=== PATIENT | female | born 1985 | race Caucasian/White ===

== ENCOUNTER 2018-03-01 05:50 | Observation (INO) | payer OTHER ==
--- NOTE | 2018-02-25 09:31 | PDGENHP ---
History and Physical History and Physical: Assessment and Plan: 1. Endometriosis of pelvic peritoneum Ines's chronic GI issues as well as her dysmenorrhea dyspareunia and dyschezia are highly suggestive of pelvic endometriosis. We reviewed all conservative and surgical options. At the end of our discussion she is interested in robotic excision of endometriosis. Given her completed childbearing and heavy menses I likely will perform a hysterectomy. She has given me permission at this time to remove her ovaries if I deem it would be beneficial to symptom improvement. I may consider repeating her pelvic ultrasound at her preoperative visit to reevaluate the complex right ovarian cyst. 2. Dysmenorrhea 3. Dyspareunia, female 4. Complex right ovarian cyst Subjective: Patient ID: Ines Mcdermott is a 32 y.o. female who presents to [facility] for endometriosis. HPI Ines Mcdermott presents for a preoperative visit. She is scheduled for a robotic assisted hysterectomy and excision of endometriosis. The risks, benefits, and alternatives were presented and informed consent was obtained. 40 minutes of this 40 minute appointment was spent counceling, reviewing the procedure in detail, and discussing the preoperative and postoperative instructions. Below is a copy of our prior visit note. Ines is a 32-year-old para 2 woman using vasectomy for contraception. She presents with a long history of gastrointestinal issues. Apparently in 2004 she was found to have a parasite after living in [place]. After treatment she continued to have problems with gas and bloating. This typically starts after lunch and gets worse throughout the evening. She eventually underwent a laparoscopy and was found to have some endometriosis on the uterus. This did not provide any significant relief. Her symptoms over time have progressively worsened. She has debilitating gas and bloating. She often can be doubled over in pain in the evenings. She has diarrhea most days of the month. All of her symptoms worsen around the time of her menses. Her best days are immediately after her flow ends. Her cycles are regular every month with 5 days of bleeding. Two of the days are very heavy when she will have to change a super plus tampon every 2 hours. With her menses she feels generalized abdominal discomfort. She has deep dyspareunia and deep dyschezia. She recently had her ParaGard IUD removed thinking this may be contributing to some of her symptoms. This has not helped. She lives in [place]. She goes to [facility] for gynecologic care. She works as a hairdresser. PastMedicalHistory Past Medical History: Diagnosis Date Depression Endometriosis Gastrointestinal disorder History of intestinal parasite PastSurgicalHistory Past Surgical History: Procedure Laterality Date CHOLECYSTECTOMY 2006 Lap COLONOSCOPY PELVIC LAPAROSCOPY 2007 UPPER GASTROINTESTINAL ENDOSCOPY WISDOM TOOTH EXTRACTION 2017 CURRENT MEDICATIONS: Current Outpatient Medications Medication Sig citalopram (CELEXA) 20 mg tablet Take 20 mg by mouth. enzymes,digestive (DIGESTIVE ENZYMES PO) Take by mouth daily. Lactobacillus acidophilus (PROBIOTIC PO) Take by mouth daily. MAGNESIUM PO Take by mouth daily. multivitamin (HEXAVITAMIN) per tablet Take 1 tablet by mouth daily. pepsin/rosana/oxbile/pancreat/bet (ILTHDW-HAS-SF ZSCE-WYX-OJW-PAP PO) Take by mouth daily. No current facility-administered medications for this visit. ALLERGIES: Morphine I have reviewed, verified and agree with the past medical, surgical, , family, social and ROS history as documented by the RN today. Objective: Vital Signs: Visit Vitals BP 92/58 Pulse 59 Temp 37 C (98.6 F) (Tympanic) Ht 1.74 m (5' 8.5") Wt 52.7 kg (116 lb 3.2 oz) LMP 02/09/2018 (Approximate) SpO2 98% BMI 17.41 kg/m Physical Exam Gen: This is an alert, well developed woman in no distress. Neuro: She moves all extremities. Psych: She is appropriate, oriented, with normal affect. Neck: No thyroid enlargement, adenopathy, or tenderness. Lungs: Clear to ascultation, no wheezes or rales. Heart: Regular rate and rhythm without obvious murmurs. Abdomen: Soft, non-tender, without guarding, rebound, or masses. Extremities: No edema or cyanosis. Pelvic: Normal external genitalia. Non-gaping introitus, vagina without discharge, adequately estrogenized, no significant prolapse. Cervix without lesions or discharge. Uterus normal sized, mobile, non-tender. Adnexa non- tender without enlargement. She has mild to moderate posterior vaginal wall prolapse. She is tender surrounding the cervix especially in the posterior cul- de-sac. No nodularity is palpable. DATA: I have reviewed the pertinent medical records. PELVIC ULTRASOUND Indication: Pelvic pain. Findings: The uterus is anterior and measures 9.7 x 5.5 x 6.1 cm. The left ovary measures 3.2 x 2.0 cm. The right ovary measures 3.5 x 2.5 cm and contains a complex cystic structure with internal reticulations measuring 2.2 x 3.2 x 2.0 cm. Right adnexa has a suggestive of adhesive disease. Impression: 3.2 cm complex right ovarian cyst which may be a hemorrhagic cyst versus an endometrioma. The right adnexa and posterior cul-de-sac are exquisitely tender. TIME/COMMUNICATION: I personally spent a total of 60 minutes. Of that 40 minutes was counseling/ coordination of patient's care. See my note above for details. Joseluis Zavaleta MD Board Certified Female Pelvic Medicine and Reconstructive Surgery Director of Minimally Invasive Gynecologic Surgery, [facility] Surgeon in Minimally Invasive Gynecologic Surgery [facility] Surgeon in Robotic Surgery
[2018-03-01] MEDS ORDERED: ACETAMINOPHEN 500 MG TAB PO ONE (06:03)
[2018-03-01] MEDS ORDERED: PHENAZOPYRIDINE HCL 200 MG TAB PO ONE (06:03)
[2018-03-01] MEDS ORDERED: GABAPENTIN 300 MG CAP PO ONE (06:03)
[2018-03-01] MEDS ORDERED: ceFAZolin 2 GM/DEXTROSE 100 ML IV ONE (06:03)
[2018-03-01] MEDS ORDERED: LR 1,000 ML IV ONE (06:04)
[2018-03-01] MEDS ORDERED: LIDOCAINE 1% 2 ML INJ ID PRN (06:04)
[2018-03-01] MEDS ORDERED: BUPIVACAINE/EPI 0.5% 30 ML SDV ONE (07:27)
[2018-03-01] MEDS ORDERED: MIDAZOLAM 2 MG/2 ML VIAL ONE (07:52)
[2018-03-01] MEDS ORDERED: MIDAZOLAM 2 MG/2 ML VIAL IVP ONE (07:54)
--- NOTE | 2018-03-01 07:54 | PDANEPAE ---
ANE Past Medical History - Cardiovascular History Hx Hypertension: No Hx Arrhythmias: No Hx Chest Pain: No Hx Coronary Artery / Peripheral Vascular Disease: No Hx CHF / Valvular Disease: No Hx Palpitations: No - Pulmonary History Hx COPD: No Hx Asthma/Reactive Airway Disease: No Hx Recent Upper Respiratory Infection: No Hx Oxygen in Use at Home: No Hx Sleep Apnea: No Sleep Apnea Screening Result - Last Documented: Negative - Neurologic History Hx Cerebrovascular Accident: No Hx Seizures: No Hx Dementia: No - Endocrine History Hx Diabetes: No - Renal History Hx Renal Disorders: No - Liver History Hx Hepatic Disorders: No Hepatic History Comment: DAMIAN - Neurological & Psychiatric Hx Hx Neurological and Psychiatric Disorders: No Neurological / Psychiatric History Comment: ANXIETY, ABD PAIN - Cancer History Hx Cancer: Yes - Congenital Disorder History Hx Congenital Disorders: No - GI History Hx Gastrointestinal Disorders: Yes Gastrointestinal History Comment: DIARRHEA, BLOATING, ABD PAIN - Other Health History Other Health History: NEG - Chronic Pain History Chronic Pain: Yes (ABD PAIN) - Surgical History Prior Surgeries: CHOLECYSTECTOMY. LAPAROSCOPY ANE Review of Systems Review of Systems: - Exercise capacity METS (RN): 6 METS ANE Patient History - Allergies Allergies/Adverse Reactions: morphine Allergy (Verified 02/01/18 15:40) HYPERVENTILATION - Home Medications Home Medications: Celexa 02/01/18 [Last Taken 02/28/18 21:30] - NPO status NPO Since - Liquids (Date): 03/01/18 NPO Since - Liquids (Time): 04:30 NPO Since - Solids (Date): 02/28/18 NPO Since - Solids (Time): 19:00 - Smoking Hx Smoking Status: Never smoked - Family Anes Hx Family Hx Anesthesia Complications: NEG ANE Labs/Vital Signs - Vital Signs Blood Pressure: 101/70 Heart Rate: 63 Respiratory Rate: 20 O2 Sat (%): 100 Height: 170.18 cm Weight: 55.338 kg ANE Physical Exam - Airway Neck exam: FROM Mallampati Score: Class 1 Mouth exam: normal dental/mouth exam - Pulmonary Pulmonary: no respiratory distress - Cardiovascular Cardiovascular: regular rate and rhythym - ASA Status ASA Status: I ANE Anesthesia Plan Anesthesia Plan: general endotracheal anesthesia Total IV Anesthesia: Yes
[2018-03-01] MEDS ORDERED: HYDROmorphONE/DILAUDID 2 MG/ML INJ ONE (07:58)
[2018-03-01] MEDS ORDERED: PROPOFOL/EMULSION 500 MG/50 ML BOTTLE IV ONE ×2 (07:58→08:53)
[2018-03-01] MEDS ORDERED: ONDANSETRON 4 MG/2 ML VIAL ONE (07:59)
[2018-03-01] MEDS ORDERED: RANITIDINE 50 MG/2 ML VIAL ONE (07:59)
[2018-03-01] MEDS ORDERED: LIDOCAINE 2% 100 MG/5 ML SYR ONE (07:59)
[2018-03-01] MEDS ORDERED: ROCURONIUM 100 MG/10 ML VIAL ONE (07:59)
[2018-03-01] MEDS ORDERED: DEXAMETHASONE 4 MG/ML VIAL ONE ×2 (07:59)
[2018-03-01] MEDS ORDERED: METOCLOPRAMIDE 10 MG/2 ML VIAL ONE (07:59)
[2018-03-01] MEDS ORDERED: KETOROLAC 30 MG/1 ML SDV ONE (07:59)
--- NOTE | 2018-03-01 08:23 | PDHPUP ---
History & Physical Update H&P update statement: This history and physical update is based on an assessment of the patient which was completed after admission or registration (within 24 hours), but prior to the surgery/procedure. H&P update: H&P reviewed & patient examined, no change in patient's condition since H&P completed
[2018-03-01] MEDS ORDERED: ACETAMINOPHEN 500 MG TAB PO PRN (09:36)
[2018-03-01] MEDS ORDERED: oxyCODONE IR 5 MG TAB PO PRN (09:36)
[2018-03-01] MEDS ORDERED: NALOXONE HCL 0.4 MG/ML INJ IVP PRN (09:36)
[2018-03-01] MEDS ORDERED: MEPERIDINE 25 MG/0.5 ML AMP IVP PRN (09:36)
[2018-03-01] MEDS ORDERED: fentaNYL 100 MCG/2 ML INJ IVP PRN (09:36)
[2018-03-01] MEDS ORDERED: ALBUTEROL 3 ML DEYVIAL IH PRN (09:36)
[2018-03-01] MEDS ORDERED: PROMETHAZINE HCL 25 MG/ML INJ IVP PRN ×2 (09:36→10:42)
[2018-03-01] MEDS ORDERED: HYDROCODONE/APAP 5/325 TAB PO PRN (09:36)
[2018-03-01] MEDS ORDERED: DIAZEPAM 5 MG/ML 1 ML SYR IVP PRN (09:36)
[2018-03-01] MEDS ORDERED: ONDANSETRON 4 MG/2 ML VIAL IVP PRN ×2 (09:36→10:42)
[2018-03-01] MEDS ORDERED: HYDROmorphONE/DILAUDID 2 MG/ML INJ IVP PRN (09:36)
[2018-03-01] MEDS ORDERED: SUGAMMADEX SODIUM 200 MG/2 ML VIAL IVP ONE (09:58)
--- NOTE | 2018-03-01 10:39 | POSTANESTH ---
Post Anesthetic Evaluation Cardiovascular Status: Similar to Pre-Op Cond Respiratory Status: Similar to Pre-op Cond. Level of Consciousness/Mental Status: Mildly Sleepy, Arousable Pain Control: Adequate, Prn Tx Ordered Nausea/Vomiting Control: Adequate, Prn Tx Ordered Complications Possibly Related to Anesthesia: None Noted
--- NOTE | 2018-03-01 10:41 | POSTOPPROG ---
Post Op Note Date of Operation: 03/01/18 Surgeon: Joseluis Zavaleta Environmental Specialist: Ann Clark Anesthesiologist: Renny Patterson Anesthesia: GET(General Endotracheal) Pre-op Diagnosis: Dysmenorrhea, endo, menorrhagia, rectocele Post-op Diagnosis: same Procedure: Robotic hyst, endo, bilat ureterolysis and ovarian pexy, rectocele, cysto Findings: Endo, ureters function at end of case Inf/Abcess present in the surg proc area at time of surgery?: No EBL: Minimal Complications: None
[2018-03-01] MEDS ORDERED: ONDANSETRON DISINTEGRATING 4 MG TAB PO PRN (10:42)
--- NOTE | 2018-03-01 11:41 | GOP ---
DATE OF OPERATION: 03/01/2018 SURGEON: Joseluis Zavaleta MD MACHINE SWEEPER BRUSH MAKER: Ann Clark CFA. ANESTHESIA: General. PREOPERATIVE DIAGNOSIS: 1. Menorrhagia. 2. Dysmenorrhea. 3. Endometriosis. 4. Symptomatic rectocele. 5. Second-degree uterine prolapse. 6. Cyclic pelvic pain. POSTOPERATIVE DIAGNOSIS: 1. Menorrhagia. 2. Dysmenorrhea. 3. Endometriosis. 4. Symptomatic rectocele. 5. Second-degree uterine prolapse. 6. Cyclic pelvic pain. PROCEDURE PERFORMED: 1. Robotic-assisted total laparoscopic hysterectomy, bilateral salpingectomy. 2. Excision of endometriosis in the anterior and posterior cul-de-sac, bilateral ovarian fossa. 3. Bilateral ureterolysis. 4. Uterosacral ligament colpopexy. 5. Bilateral ovarian pexy. 6. Rectocele repair. 7. Cystoscopy. FINDINGS: SPECIMENS: Uterus, bilateral tubes, and pelvic peritoneum with endometriosis. ESTIMATED BLOOD LOSS: Scant. DESCRIPTION OF PROCEDURE: The patient was taken to the operating room where she was identified. Gen eral anesthesia was administered and found to be adequate. She was placed in the lithotomy position and prepared and draped in normal sterile fashion. A [employer] uterine manipulator was placed into the e ndometrial cavity and sutured to the cervix. A Saab catheter was then placed. A 1 cm infraumbilical incision was made with a scalpel. The Veress needle with CO2 gas flowing was a dvanced into the peritoneal cavity. The abdomen was insufflated with carbon dioxide gas. The 12 mm trocar followed by the laparoscope were then inserted. The upper abdomen was unremarkable. There wa s no endometriosis on either diaphragm, stomach liver or bowel. Two lateral ports were placed, 1 on the right and 1 on the left under direct visualization. She then was placed in Trendelenburg positio n and the da Elizabeth robot docked on the left side. The instruments were then brought into the abdomin al cavity under direct visualization. She had a lesion in the left anterior cul-de-sac. She had mul tiple areas of endometriosis throughout the posterior cul-de-sac and bilateral ovarian fossa. The po sterior cul-de-sac peritoneum from the distal rectum up to the cervix and laterally to the uterosacra l ligaments was then completely excised. The fallopian tubes were then along the mesosalpi nx and excised. The anterior cul-de-sac lesion was excised. A bilateral ovariopexy was performed by attaching each ovary to the ipsilateral round ligaments with 3-0 Vicryl Rapide suture. A bilateral ureterolysis was then required given the endometriosis overlying both ureters. The peritoneum at the pelvic brims were incised. The ureters were gently dissected free and lateralized from the pelvic br im all the way down to the bladder. Once this was accomplished, the entire ovarian fossa peritoneum with overlying endometriosis was completely excised. The utero-ovarian ligament followed by the roun d ligament were then cauterized and transected. The anterior lip of the broad ligament was then inci sed over the left uterine vessels and across the cervix. The bladder was gently dissected off the ce rvix and upper vagina. The left uterine vasculature was then cauterized and transected. The exact s benito procedure was performed on the patient's right side. A circumferential colpotomy incision was th en made with the hot katrin and all specimens were removed through the vagina. The vaginal cuff was closed with a running suture of 0 V-Loc 180. A bilateral uterosacral ligament colpopexy was performe d by attaching the lateral aspects of the vaginal cuff to the ipsilateral uterosacral ligaments near the coccygeal-sacrospinous ligament complexes. The pelvis was then irrigated with sterile saline, an d hemostasis was present. The robot was then undocked. The fascia was closed with 0 Vicryl, skin wi th 4-0 Monocryl. A transverse incision was then made along the perineal body. Posterior vaginal epithelium was underm ined with the Metzenbaum scissors and incised sagittally. The epithelium was then gently dissected o ff the underlying rectovaginal connective tissue. The connective tissue was plicated in midline with 0 Vicryl suture. The bulbous spongiosis and transverse perineal muscles were then plicated with 0 V icryl. The excess epithelium was then trimmed and closed with a running 3-0 Vicryl suture. Cystoscopy was then performed. Both ureters had vigorous jets of urine. There was no evidence of bl adder nor urethral injury seen. No sutures were seen within the bladder. No obvious pathology was s een. Anesthesia was reversed and the patient taken to PACU awake, in stable condition. COMPLICATIONS: None. DISPOSITION: Patient stable to PACU. /[id number]/MODL
[2018-03-01] MEDS: HYDROmorphONE/DILAUDID 1 MG/ML INJ IVP PRN ×4 (12:23→22:53)
[2018-03-01] MEDS: KETOROLAC 30 MG/1 ML SDV IVP SCH ×3 (12:24→23:59)
[2018-03-01] MEDS: LR 1,000 ML IV SCH ×2 (12:48→22:27)
[2018-03-01] MEDS ORDERED: diphenhydrAMINE 25 MG CAP PO PRN (13:42)
[2018-03-01] MEDS: SIMETHICONE 80 MG TAB CHEW PO SCH ×3 (13:56→21:15)
[2018-03-01] MEDS: GABAPENTIN 300 MG CAP PO SCH ×2 (15:36→21:16)
[2018-03-01] MEDS: HYDROCODONE/APAP 5/325 TAB PO PRN ×2 (20:01→21:16)
[2018-03-01] MEDS: DOCUSATE SODIUM 100 MG CAP PO SCH (21:46)
[2018-03-01] MEDS ORDERED: MAGNESIUM PO SCH (22:00)
[2018-03-02] MEDS: KETOROLAC 30 MG/1 ML SDV IVP SCH (05:16)
[2018-03-02 05:35] LABS: PLATELET COUNT 157 10^3/uL (150-400)
[2018-03-02] MEDS ORDERED: LR 500 ML IV ONE (06:00)
[2018-03-02 08:36] VITALS: BP 87/57
[2018-03-02] MEDS: OXYCODONE/APAP 5/325 TAB PO PRN ×2 (09:25→13:23)
--- NOTE | 2018-03-02 11:52 | GDS ---
DISCHARGE DIAGNOSES: 1. Dysmenorrhea. 2. Menorrhagia. 3. Endometriosis. 4. Symptomatic rectocele. 5. Second-degree uterine prolapse. PROCEDURES: 1. Robotic-assisted total laparoscopic hysterectomy, bilateral salpingectomy. 2. Excision of endometriosis. 3. Bilateral ureterolysis. 4. Uterosacral ligament colpopexy. 5. Bilateral ovariopexy. 6. Rectocele repair. 7. Cystoscopy. HOSPITAL COURSE: The patient is a 32-year-old female with symptomatic endometriosis and rectocele. She was taken to the operating room on 03/04/2014, where she underwent the above-mentioned procedures without complications. Her postoperative course was relatively uneventful. The morning after surgery, she was ambulating, v oiding, and tolerating a general diet. She was discharged home on postoperative day #1 in good condi tion. Medications, included Percocet and ibuprofen for pain. She is to follow up in the office 2 we eks after discharge. /[id number]/MODL
[2018-03-02] MEDS: GABAPENTIN 300 MG CAP PO SCH (12:35)
[2018-03-02] MEDS ORDERED: IBUPROFEN 600 MG TAB PO SCH (13:15)
[2018-03-02] MEDS: DOCUSATE SODIUM 100 MG CAP PO SCH (13:37)
[2018-03-02] MEDS: SIMETHICONE 80 MG TAB CHEW PO SCH ×2 (13:37→14:06)
== END 2018-03-02 14:06 | disposition home or self-care (01) ==
LOC: F3E 05:50 → FOB 11:33
PROVIDERS: ADMIT Obstetrics & Gynecology; ATTEND Obstetrics & Gynecology
DX: N92.0 Excessive and frequent menstruation with regular cycle (principal); N80.3 Endometriosis of pelvic peritoneum; N94.6 Dysmenorrhea, unspecified; R10.2 Pelvic and perineal pain; N81.6 Rectocele; N81.2 Incomplete uterovaginal prolapse; N83.201 Unspecified ovarian cyst, right side; N94.10 Unspecified dyspareunia; N94.0 Mittelschmerz
CPT/HCPCS: 57250; 57425; 58571; 58662; 58679; G0378; J0690; J1100; J1170; J1885; J2001; J2250; J2405; J2550; J2704; J2765; J2780